=== PATIENT | female | born 1995 | race Caucasian/White ===

== ENCOUNTER 2021-08-25 07:15 | Inpatient (IN) | payer OTHER ==
[~2021-08-25] VITALS: Ht 170.2 cm; Wt 123.8 kg
[2021-08-25 08:19] LABS: HEMOGLOBIN 10.6 gm/dl (12.3-15.3); RED BLOOD COUNT 3.44 M/UL (4.00-5.10); WHITE BLOOD COUNT 7.9 K/UL (4.5-11.0)
[2021-08-25] MEDS ORDERED: PRENATAL VITAM1 EAC6 PO (08:24)
[2021-08-25] MEDS ORDERED: FEROSUL325 MG PO (08:24)
[2021-08-25] MEDS ORDERED: TRANDATE 100 M100 MG PO (08:25)
[2021-08-25 08:45] LABS: BUN/CREATININE RATIO 19 (0-10)
[2021-08-25] MEDS ORDERED: IBUPROFEN800 MG PO (12:06)
[2021-08-25] MEDS ORDERED: HYDROCODON-ACE1 EAC2 PO (12:06)
[2021-08-25] MEDS ORDERED: COLACE 100MG C100 MG PO (12:06)
[2021-08-25 22:13] LABS: HEMOGLOBIN 9.4 gm/dl (12.3-15.3)
[2021-08-26 02:33] LABS: HEMOGLOBIN 9.2 gm/dl (12.3-15.3)
[2021-08-26] MEDS ORDERED: FERROUS SULFAT325 MG PO (19:59)
== END 2021-08-26 22:42 | disposition home or self-care (01) | DRG 787 ==
LOC: OB 07:15
PROVIDERS: ADMIT Obstetrics & Gynecology
PROC: 10D00Z1 Extraction of Products of Conception, Low, Open Approach (ICD-10-PCS; principal; 2021-08-25 07:30)
DX: O32.1XX0 Maternal care for breech presentation, not applicable or unspecified (principal); O10.92 Unspecified pre-existing hypertension complicating childbirth; D62 Acute posthemorrhagic anemia; O72.1 Other immediate postpartum hemorrhage; Z20.822 Contact with and (suspected) exposure to COVID-19; O34.211 Maternal care for low transverse scar from previous cesarean delivery; O99.214 Obesity complicating childbirth; E66.01 Morbid (severe) obesity due to excess calories; O99.02 Anemia complicating childbirth; Z37.0 Single live birth; Z3A.38 38 weeks gestation of pregnancy; Z88.8 Allergy status to other drugs, medicaments and biological substances; Z88.1 Allergy status to other antibiotic agents; Z83.3 Family history of diabetes mellitus; Z82.49 Family history of ischemic heart disease and other diseases of the circulatory system; Z80.8 Family history of malignant neoplasm of other organs or systems
CPT/HCPCS: 36415; 36600; 80053; 81001; 82800; 85014; 85018; 85025; 85461; 86850; 86900; 86901; C9113; J1170; J1580; J2370; J2405; J2590; J2790; J7120